=== PATIENT | male | born 1985 | race Caucasian/White ===

== ENCOUNTER → 2018-09-02 | Outpatient (CLI) | payer OTHER, BC ==
[2018-09-02 14:29] LABS: FREE T4 (FREE THYROXINE) 0.97 ng/dL (0.78-2.19)
[2018-09-02 14:43] LABS: THYROID STIMULATING HORMONE 1.64 uIU/mL (0.47-4.68)
== END ==
LOC: OD 13:19
PROVIDERS: ATTEND Psychiatry & Neurology Psychiatry
DX: F33.1 Major depressive disorder, recurrent, moderate (principal); Z79.899 Other long term (current) drug therapy
CPT/HCPCS: 36415; 84439; 84443